=== PATIENT | female | born 1990 | race Two or more races ===

== ENCOUNTER 2021-12-16 23:36 | Emergency (ER) | payer MEDICAID ==
[~2021-12-16] VITALS: Ht 177.8 cm; Wt 100.0 kg
[2021-12-17] MEDS ORDERED: FAMOTIDINE 20MG TABLET PO ONE (00:15)
[2021-12-17] MEDS ORDERED: ASPIRIN 81MG TABLET PO ONE (00:15)
[2021-12-17 01:07] LABS: BASOPHILS % 0.6 % (0.0-2.0); EOSINOPHILS % 1.9 % (0.0-5.0); HEMATOCRIT. 36.4 % (36.0-48.0); HEMOGLOBIN. 12.6 g/dL (12.0-16.0); LYMPHOCYTES % 40.5 % (20.0-50.0); MEAN CORPUSCULAR HEMOGLOBIN 30.7 pg (28.0-32.0); MEAN CORPUSCULAR VOLUME 88.5 fL (81.0-99.0); MEAN PLATELET VOLUME 8.1 fl (7.4-10.4); MONOCYTES % 14.5 % (2.0-8.0); NEUTROPHILS % 42.5 % (40.0-76.0); PLATELET 130 x1000/uL (130-400); RED BLOOD CELL COUNT 4.11 mill/uL (4.2-5.4); RED CELL DISTRIBUTION WIDTH 12.7 % (11.6-14.6)
[2021-12-17 01:09] LABS: CHLORIDE 109 mEq/L (98-107)
[2021-12-17] MEDS ORDERED: FAMOTIDINE 20MG TABLET PO SCH (01:30)
[2021-12-17] MEDS ORDERED: ASPIRIN 81MG TABLET PO SCH (01:30)
[2021-12-17] MEDS ORDERED: ENOXAPARIN 100MG/ML SYR SUBCUT SCH ×2 (04:00)
[2021-12-17 04:03] LABS: PARTIAL THROMBOPLASTIN TIME 26.4 sec (23.4-31.0); PROTHROMBIN TIME 10.5 sec (9.6-11.0)
[2021-12-17 06:12] LABS: CLARITY URINE CLEAR (CLEAR); COLOR URINE YELLOW (YELLOW); KETONES URINE NEGATIVE (NEGATIVE); LEUKOCYTE ESTERASE URINE NEGATIVE (NEGATIVE); NITRITE URINE NEGATIVE (NEGATIVE); OCCULT BLOOD URINE NEGATIVE (NEGATIVE); PH URINE 5.5 (4.5-8.0); PROTEIN URINE NEGATIVE (NEGATIVE); SPECIFIC GRAVITY URINE 1.019 (1.005-1.030)
[2021-12-17 08:00] VITALS: BP 110/64
== END 2021-12-17 09:33 | disposition home or self-care (01) ==
LOC: ER 23:36
DX: R07.89 Other chest pain (principal); F31.9 Bipolar disorder, unspecified; K21.9 Gastro-esophageal reflux disease without esophagitis; I10 Essential (primary) hypertension; Z88.2 Allergy status to sulfonamides
CPT/HCPCS: 36415; 71045; 78582; 80053; 81003; 81025; 83880; 84484; 85025; 85379; 85610; 85730; 93005; 96372; 99285; A9540; A9558; J1650